=== PATIENT | female | born 1990 | race Caucasian/White ===

== ENCOUNTER 2016-06-24 01:46 | Emergency (ER) | payer MEDICARE, MEDICAID ==
[~2016-06-24] VITALS: Ht 167.6 cm; Wt 150.0 kg
[2016-06-24 01:47] VITALS: BP 186/90; PULSE 108; RESP 20; TEMP 97.7; O2SAT 100
[2016-06-24] MEDS ORDERED: PIPERACIL-TAZO 3.375 GM PREMIX 50 ML IV ONE (02:45)
[2016-06-24] MEDS ORDERED: SODIUM CHLOR 0.9% 1000 ML INJ 1,000 ML IV ONE (02:45)
[2016-06-24] MEDS ORDERED: VANCOMYCIN INJ 1,000 MG in SODIUM CHLOR 0.9% 250 ML INJ 250 ML IV ONE (02:45)
[2016-06-24 02:52] LABS: AUTOMATED NEUTROPHIL # 7.1 TH/MM3 (1.8-7.7); BASOPHIL # 0.1 TH/MM3 (0-0.2); BASOPHIL % 0.6 % (0.0-2.0); EOSINOPHIL # 0.2 TH/MM3 (0-0.4); EOSINOPHIL % 1.6 % (0.0-4.0); HEMATOCRIT 37.2 % (35.0-46.0); HEMO FLAGS DIFF FINAL; LYMPH % 28.7 % (9.0-44.0); LYMPHOCYTE # 3.2 TH/MM3 (1.0-4.8); MEAN CELL VOLUME 89.1 FL (80.0-100.0); MEAN CORPUSCULAR HEMOGLOBIN 30.3 PG (27.0-34.0); MONO % 6.6 % (0.0-8.0); NEUT % 62.5 % (16.0-70.0); PLATELET COUNT 334 TH/MM3 (150-450); RED BLOOD COUNT 4.17 MIL/MM3 (4.00-5.30); RED CELL DISTRIBUTION WIDTH 13.6 % (11.6-17.2); WHITE BLOOD COUNT 11.3 TH/MM3 (4.0-11.0)
[2016-06-24 03:05] LABS: APTT (PATIENT) 24.4 SEC (24.3-30.1); INTERNATIONAL NORMALIZED RATIO 0.9 RATIO; PROTHROMBIN TIME - PATIENT 10.4 SEC (9.8-11.6)
[2016-06-24 03:11] LABS: ALT (GPT) 38 U/L (10-53); ANION GAP 5 MEQ/L (5-15); AST (GOT) 27 U/L (15-37); BICARBONATE 29.4 MEQ/L (21.0-32.0); BLOOD UREA NITROGEN 11 MG/DL (7-18); CHLORIDE 104 MEQ/L (98-107); GLOMERULAR FILTRATION RATE 92 ML/MIN (>89); SODIUM (NA) 138 MEQ/L (136-145)
[2016-06-24 03:13] LABS: ALKALINE PHOSPHATASE 84 U/L (45-117); TOTAL BILIRUBIN ADULT 0.2 MG/DL (0.2-1.0)
[2016-06-24 03:14] LABS: BLOOD, URINE NEG (NEG); GLUCOSE,URINE NEG (NEG); KETONE, URINE NEG (NEG); NITRITE,URINE NEG (NEG); SQUAMOUS EPITHELIAL CELL URINE 1 /hpf (0-5); URINE COLOR YELLOW (YELLW/STRAW)
[2016-06-24 03:15] LABS: COMMENT (UR) CULT NOT INDICATED; CULTURE IF INDICATED CULT NOT INDICATED
[2016-06-24] MEDS ORDERED: diphenhydrAMINE HCL 50 MG/ML VIAL IV PUSH ONE (04:15)
[2016-06-24 04:17] VITALS: BP 127/72; PULSE 86; RESP 20; O2SAT 100
[2016-06-24] MEDS ORDERED: IOHEXOL 350 MG/ML 10 ML VIAL (for RAD DIAG) IV ONE (05:38)
--- NOTE | 2016-06-24 06:04 | RADRPT ---
EXAM DATE/TIME: 06/24/2016 05:33 [place] COMPARISON: No previous studies available for comparison. INDICATIONS : Cholcystectomy on June 13, Incision infected and not getting better. IV CONTRAST: 95 cc Omnipaque 350 (iohexol) IV ORAL CONTRAST: No oral contrast ingested. RADIATION DOSE: 29.46 CTDIvol (mGy) MEDICAL HISTORY : None SURGICAL HISTORY : Cholecystectomy. ENCOUNTER: Initial ACUITY: 2 weeks PAIN SCALE: 6/10 LOCATION: Right upper quadrant TECHNIQUE: Volumetric scanning of the abdomen and pelvis was performed. Using automated exposure control and ad justment of the mA and/or kV according to patient size, radiation dose was kept as low as reasonably achievable to obtain optimal diagnostic quality images. FINDINGS: LOWER LUNGS: The visualized lower lungs are clear. LIVER: Homogeneous density without lesion. There is no dilation of the biliary tree. Gallbladder is surgica lly absent. No fluid seen within the gallbladder fossa. SPLEEN: Normal size without lesion. PANCREAS: Within normal limits. KIDNEYS: Normal in size and shape. There is no mass, stone or hydronephrosis. ADRENAL GLANDS: Within normal limits. VASCULAR: There is no aortic aneurysm. BOWEL/MESENTERY: The stomach, small bowel, and colon demonstrate no acute abnormality. There is no free intraperitone al air or fluid. ABDOMINAL WALL: Within normal limits. No fluid collections observed. RETROPERITONEUM: There is no lymphadenopathy. BLADDER: No wall thickening or mass. REPRODUCTIVE: Within normal limits. INGUINAL: There is no lymphadenopathy or hernia. MUSCULOSKELETAL: Within normal limits for patient age. CONCLUSION: 1. Prior cholecystectomy. 2. No abscess involving the gallbladder fossa or anterior abdominal wall. Rolando Griffin Jr., MD on June 24, 2016 at 6:01 Board Certified Radiologist. This report was verified electronically.
[2016-06-24] MEDS ORDERED: CEPH-460 PO (06:28)
[2016-06-24] MEDS ORDERED: BACT800T5 PO (06:28)
--- NOTE | 2016-06-24 06:29 | PD ---
HPI Chief Complaint: Skin Problem Time Seen by Provider: 02:34 Travel History International Travel<30 days: No Contact w/Intl Traveler<30days: No Traveled to known affect area: No History of Present Illness HPI The patient is a 25 year old female who presents to the [facility] emergency department with a history of wound infection in the right lateral abdomen that she reports began approximately a week ago. The patient reports that she underwent laparoscopic cholecystectomy and a lipoma resection along the right lateral abdomen at the same time at [facility]. When she noticed that the wound was getting infected she went to the emergency department again was started on antibiotic. She reports that she completed the course of antibiotic, however there continues to be some drainage. She has not seen her surgeon in follow-up yet. She reports that she has an appointment later this week for follow-up. The other laparoscopy wounds on her abdomen are reportedly healing well postop. The patient reports that she has had some nausea, vomiting 2 earlier today. The patient denies any recent fevers, cough , congestion, neck pain, chest pain, shortness of breath, diarrhea, urinary symptoms, or neurologic symptoms. PFSH Past Medical History Narrative Medical The patient's past medical history is significant for none. Past Surgical History Narrative Surgical The patient's past surgical history is significant for laparoscopic cholecystectomy and lipoma removal. Social History Alcohol Use: No Tobacco Use: No Substance Use: No Allergies-Medications (Allergen,Severity, Reaction): Coded Allergies: Vancomycin (Verified Allergy, Severe, Itching, 06/24/16) Reported Meds & Prescriptions Reported Meds & Active Scripts Active Bactrim DS (Sulfamethoxazole-Trimethoprim) 800-160 Mg Tab 1 Tab PO BID Keflex (Cephalexin) 500 Mg Cap 500 Mg PO Q6H 10 Days Review of Systems Except as stated in HPI: all other systems reviewed are Neg General / Constitutional: No: Fever Eyes: No: Visual changes HENT: No: Headaches Cardiovascular: No: Chest Pain or Discomfort Respiratory: No: Shortness of Breath Gastrointestinal: Positive: Nausea, Vomiting, Abdominal Pain, No: Constipation , Changes in Bowel Habits, Loss of Appetite Genitourinary: No: Dysuria Musculoskeletal: No: Pain Skin: No Rash Neurologic: No: Weakness Psychiatric: No: Depression Endocrine: No: Polydipsia Hematologic/Lymphatic: No: Easy Bruising Physical Exam Narrative General: The patient is a well-developed well-nourished female in no acute distress Head and Neck exam: Head is normocephalic atraumatic. Eyes: EOMI, pupils are equal round and reactive to light. Nose: Midline septum with pink mucous membranes Mouth: Dentition unremarkable. Moist mucus membranes. Posterior oropharynx is not erythematous. No tonsillar hypertrophy. Uvula midline. Airway patent. Neck: No palpable lymphadenopathy. No nuchal rigidity. No thyromegaly. Cardiovascular: Regular rate and rhythm without murmurs, gallops, or rubs. Lungs: Clear to auscultation bilaterally. No wheezes, rhonchi, or rales. Abdomen: Soft, without tenderness to palpation in all 4 quadrants of the abdomen. No guarding, rebound, or rigidity. Normal bowel sounds are audible. Laparoscopic incisions are noted that appear to be healing well. On examination of the right lateral abdomen the patient is noted to have an approximately 4 cm healing wound that is slightly open with a rim of erythema, and a light yellow thin discharge noted. This was cultured. Extremities: No clubbing, cyanosis, or edema. 2+ pulses in all 4 extremities. No calf tenderness on palpation. Back: No spinous process tenderness to palpation. No costovertebral angle tenderness to palpation. Neurologic Exam: Grossly nonfocal. Data Data Last Documented VS Vital Signs Date Time Temp Pulse Resp B/P Pulse Ox O2 Delivery O2 Flow Rate FiO2 06/24/16 06:40 72 16 128/79 100 06/24/16 04:17 Room Air 06/24/16 01:47 97.7 Orders Complete Blood Count With Diff (06/24/16 02:34) Comprehensive Metabolic Panel (06/24/16 02:34) Prothrombin Time / Inr (Pt) (06/24/16 02:34) Act Partial Throm Time (Ptt) (06/24/16 02:34) Blood Culture (06/24/16 02:34) C-Reactive Protein (Crp) (06/24/16 02:34) Lipase (06/24/16 02:34) Urinalysis - C+S If Indicated (06/24/16 02:34) Iv Access Insert/Monitor (06/24/16 02:34) Ecg Monitoring (06/24/16 02:34) Oximetry (06/24/16 02:34) Ed Urine Pregnancytest Poc (06/24/16 02:34) Lactic Acid Sepsis Protocol (06/24/16 02:34) Sodium Chlor 0.9% 1000 Ml Inj (Ns 1000 M (06/24/16 02:45) Piperacil-Tazo 3.375 Gm Premix (Zosyn 3. (06/24/16 02:45) Vancomycin Inj (Vancomycin Inj) (06/24/16 02:45) Diphenhydramine Inj (Benadryl Inj) (06/24/16 04:15) Wound Culture And Gram Stain (06/24/16 05:06) Ct Abd/Pel W Iv Contrast(Rout) (06/24/16 05:06) Iohexol 350 Inj (Omnipaque 350 Inj) (06/24/16 05:38) Labs Laboratory Tests Test 06/24/16 06/24/16 02:38 02:53 White Blood Count 11.3 TH/MM3 Red Blood Count 4.17 MIL/MM3 Hemoglobin 12.6 GM/DL Hematocrit 37.2 % Mean Corpuscular Volume 89.1 FL Mean Corpuscular Hemoglobin 30.3 PG Mean Corpuscular Hemoglobin 34.0 % Concent Red Cell Distribution Width 13.6 % Platelet Count 334 TH/MM3 Mean Platelet Volume 8.3 FL Neutrophils (%) (Auto) 62.5 % Lymphocytes (%) (Auto) 28.7 % Monocytes (%) (Auto) 6.6 % Eosinophils (%) (Auto) 1.6 % Basophils (%) (Auto) 0.6 % Neutrophils # (Auto) 7.1 TH/MM3 Lymphocytes # (Auto) 3.2 TH/MM3 Monocytes # (Auto) 0.7 TH/MM3 Eosinophils # (Auto) 0.2 TH/MM3 Basophils # (Auto) 0.1 TH/MM3 CBC Comment DIFF FINAL Differential Comment Prothrombin Time 10.4 SEC Prothromb Time International 0.9 RATIO Ratio Activated Partial 24.4 SEC Thromboplast Time Sodium Level 138 MEQ/L Potassium Level 4.0 MEQ/L Chloride Level 104 MEQ/L Carbon Dioxide Level 29.4 MEQ/L Anion Gap 5 MEQ/L Blood Urea Nitrogen 11 MG/DL Creatinine 0.76 MG/DL Estimat Glomerular Filtration 92 ML/MIN Rate Random Glucose 94 MG/DL Lactic Acid Level 1.4 mmol/L Calcium Level 9.6 MG/DL Total Bilirubin 0.2 MG/DL Aspartate Amino Transf 27 U/L (AST/SGOT) Alanine Aminotransferase 38 U/L (ALT/SGPT) Alkaline Phosphatase 84 U/L C-Reactive Protein 1.92 MG/DL Total Protein 7.9 GM/DL Albumin 3.5 GM/DL Lipase 199 U/L Urine Color YELLOW Urine Turbidity CLEAR Urine pH 7.0 Urine Specific [place] 1.018 Urine Protein TRACE mg/dL Urine Glucose (UA) NEG mg/dL Urine Ketones NEG mg/dL Urine Occult Blood NEG Urine Nitrite NEG Urine Bilirubin NEG Urine Urobilinogen LESS THAN 2.0 MG/DL Urine Leukocyte Esterase NEG Urine RBC 2 /hpf Urine WBC 1 /hpf Urine Squamous Epithelial 1 /hpf Cells Microscopic Urinalysis Comment CULT NOT INDICATED MDM Medical Decision Making Medical Screen Exam Complete: Yes Emergency Medical Condition: Yes Medical Record Reviewed: Yes Interpretation(s) Last Impressions Abdomen/Pelvis CT 06/24/16 0506 Signed Impressions: Service Date/Time: Friday, June 24, 2016 05:33 - CONCLUSION: 1. Prior cholecystectomy. 2. No abscess involving the gallbladder fossa or anterior abdominal wall. Rolando Griffin Jr., MD Differential Diagnosis Postop wound infection, versus intra-abdominal abscess, versus sepsis Narrative Course During the course of the patients emergency department visit, the patients history, examination, and differential diagnosis were reviewed with the patient. The patient had IV access obtained and blood work sent for analysis. The patient was placed on a pvc monitor with oximetry and blood pressure monitoring. The patient was provided Zosyn and vancomycin, normal saline 1 L IV fluid bolus. The patient began to have itching and hives related to vancomycin administration. This was discontinued and the patient was given Benadryl 50 mg IV. The patient's symptoms resolved. The patients laboratory studies were reviewed and remarkable for a white count of 11.3, hemoglobin 12.6, platelets 334 with a normal differential, CMP is unremarkable, C-reactive protein 1.92, lipase 199, lactic acid 1.4, urinalysis within normal limits. Radiology studies were reviewed and remarkable for a CT scan of the abdomen and pelvis shows a history of cholecystectomy, no abscess involving the gallbladder fossa or anterior abdominal wall. The patient will be discharged home with more broad-spectrum coverage of antibiotics to include Keflex and Bactrim. The patient was instructed regarding the importance of following up with her surgeon for reexamination in the next 24 hours. The patient is resting comfortably and feels better, is alert and in no distress. The patients results and examination findings were discussed with the patient. The repeat examination is unremarkable and benign. The history, exam, diagnostic testing, and current condition do not suggest any significant pathology to warrant further testing, continued ED treatment, admission, or surgical evaluation at this point. The vital signs have been stable. The patient does not have uncontrollable pain, intractable vomiting, or other significant symptoms. The patient's condition is stable and appropriate for discharge. The patient will pursue further outpatient evaluation with a primary care physician or other designated or consulting physician as indicated in the discharge instructions. The patient expressed understanding and was agreeable with this plan. Sepsis Criteria SIRS Criteria (2 or more): Heart rate over 90 Sepsis Criteria (SIRS+source): Infect source susp/known Diagnosis Primary Impression: Postoperative infection Qualified Code: T81.4XXA - Postoperative infection, initial encounter Referrals: General Surgeon 1 day Patient Instructions: General Instructions, Wound Infection (ED) Departure Forms: Tests/Procedures Scripts Sulfamethoxazole-Trimethoprim (Bactrim DS)800-160 Mg Tab1 Tab PO BID #20 TAB Ref 0 Prov:Radha García MD 06/24/16 Cephalexin (Keflex)500 Mg Fdi412 Mg PO Q6H 10 Days Ref 0 Prov:Radha García MD 06/24/16 Disposition: 01 DISCHARGE HOME Condition: Radha Dozier MD Jun 24, 2016 06:29
[2016-06-24 06:40] VITALS: BP 128/79
== END 2016-06-24 06:41 | disposition home or self-care (01) ==
LOC: NEPC 01:46
DX: T81.4XXA Infection following a procedure, initial encounter (principal); R11.2 Nausea with vomiting, unspecified; X58.XXXA Exposure to other specified factors, initial encounter
CPT/HCPCS: 74177; 80053; 81001; 83605; 83690; 84703; 85025; 85610; 85730; 86140; 87040; 87070; 96365; 96368; 96375; 99285; J1200; J2543; J3370; J7030; J7050; Q9967